=== PATIENT | male | born 1980 | race Caucasian/White ===

== ENCOUNTER 2019-02-15 18:25 | Emergency (ER) | payer MEDICAID, OTHER ==
[~2019-02-15] VITALS: Ht 167.6 cm; Wt 81.8 kg
[2019-02-15 18:40] VITALS: Ht 167.6 cm; Wt 81.8 kg
[2019-02-15 22:55] VITALS: BP 123/86; PULSE 70; RESP 16
[2019-02-15] MEDS ORDERED: KETOROLAC 15 MG INJ IV STA (23:06)
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
[2019-02-15] MEDS ORDERED: IBUP-1561 PO (23:11)
== END 2019-02-15 23:35 | disposition home or self-care (01) ==
LOC: E/R 18:25
DX: R07.9 Chest pain, unspecified (principal); Z87.891 Personal history of nicotine dependence
CPT/HCPCS: 36415; 71045; 80053; 83880; 84484; 85025; 93005; 96374; J1885; Z7502; Z7610